=== PATIENT | female | born 2000 | race Caucasian/White ===

== ENCOUNTER 2021-10-16 17:05 | Emergency (ER) | payer MEDICAID ==
[~2021-10-16] VITALS: Ht 162.6 cm; Wt 50.0 kg
[2021-10-16] MEDS ORDERED: MORPHINE SULFATE 4 MG/ML CPJ (NOT FOR IM USE) IV ONE (20:00)
[2021-10-16] MEDS ORDERED: TETANUS, DIPHTHERIA, PERTUSSIS VAC/PF 0.5ML (>10YR OLD) IM ONE (21:00)
[2021-10-16] MEDS ORDERED: BACITRACIN ZINC OINT UDPKT TOP ONE (21:30)
[2021-10-16] MEDS ORDERED: LIDOCAINE HCL/EPINEPHRINE 1%-EPI 1:100,000 20 ML VIAL INFIL ONE (21:30)
[2021-10-16] MEDS ORDERED: CEFAZOLIN 1000MG PREMIX 50 ML IV ONE (22:00)
[2021-10-16] MEDS ORDERED: ONDANSETRON HCL 4MG/2ML INJ IV ONE (22:30)
[2021-10-16] MEDS ORDERED: ACET-2708 MT (22:42)
[2021-10-16] MEDS ORDERED: CEPH500T MT (22:42)
[2021-10-16] MEDS ORDERED: IBUP-2029 MT (22:42)
[2021-10-16 23:00] VITALS: BP 101/52
== END 2021-10-17 | disposition home or self-care (01) ==
LOC: ER 17:05
DX: S56.429A Laceration of extensor muscle, fascia and tendon of unspecified finger at forearm level, initial encounter (principal); X99.8XXA Assault by other sharp object, initial encounter; Y93.89 Activity, other specified; Y92.89 Other specified places as the place of occurrence of the external cause
CPT/HCPCS: 12002; 73090; 90471; 90715; 96365; 96375; 99284; A4217; J0690; J2270; J2405; J3490